=== PATIENT | male | born 1995 | race Two or more races ===

== ENCOUNTER 2020-04-20 01:42 | Emergency (ER) | payer SELFPAY ==
--- NOTE | 2020-04-20 02:07 | EDM.PDOC ---
ED HPI GENERAL MEDICAL PROBLEM - General Chief Complaint: Abdominal Pain Stated Complaint: SPOKE TO NURSE ABOUT COMPLICATIONS Time Seen by Provider: 04/20/20 01:44 Source of Information: Reports: Patient History Limitations: Reports: No Limitations - History of Present Illness INITIAL COMMENTS - FREE TEXT/NARRATIVE: This patient is a 25 year-old male with a past medical history of hypertension and chronic opioid dependence (oxycodone) presenting with constipation. He states that he has been unable to have a bowel movement for at least 5 days. He has not taken any gkio-fru-fkqpfdi constipation therapies to try to treat himself. He denies any fever, abdominal distention, abdominal pain, rectal bleeding, hematemesis, or personal or family history of colon cancer, or weight loss. Denies any change in stool color. No other complaints. - Related Data Allergies Allergy/AdvReac Type Severity Reaction Status Date / Time No Known Allergies Allergy Verified 04/20/20 01:55 Home Meds: Home Meds Sodium Phosphate,Wise-Dibasic [Fleet Enema] 118 ml RC DAILY 1 Days #1 enema 03/06 [Rx] polyethylene glycoL 3350 [MiraLAX] 17 gm PO DAILY 7 Days #1 bottle 04/20/20 [Rx] Past Medical History Cardiovascular History: Reports: Hypertension Other Cardiovascular History: unmedicated HTN Psychiatric History: Reports: Addiction Other Psychiatric History: reports that he thinks he is addicted to opiates Social & Family History - Tobacco Use Smoking Status *Q: Current Every Day Smoker Years of Tobacco use: 7 Packs/Tins Daily: 1 - Recreational Drug Use Recreational Drug Use: Yes Drug Use in Last 12 Months: Yes Recreational Drug Type: Reports: Oxycodone, Other (see below) (Oxycodone dependence) Other Recreational Drug Type: Opiate pills; unsure of what pills he takes ED ROS GENERAL - Review of Systems Review Of Systems: See Below Constitutional: Denies: Fever, Chills Respiratory: Denies: Shortness of Breath Cardiovascular: Denies: Chest Pain Endocrine: Reports: No Symptoms GI/Abdominal: Reports: Constipation. Denies: Abdominal Pain, Anorexia, Black Stool, Bloody Stool, Diarrhea, Hematemesis, Hematochezia, Melena, Nausea, Stool Incontinence, Vomiting : Reports: No Symptoms Musculoskeletal: Reports: No Symptoms Skin: Reports: No Symptoms Neurological: Reports: No Symptoms Psychiatric: Reports: No Symptoms Hematologic/Lymphatic: Reports: No Symptoms Immunologic: Reports: No Symptoms ED EXAM, GI/ABD - Physical Exam Exam: See Below Text/Narrative:: Vital signs reviewed. Nursing notes reviewed. Constitutional: Awake, alert, non-distressed. Head: Normocephalic, atraumatic. Eyes: conjunctiva normal, no discharge, no scleral icterus. Cardiovascular: 2+ radial pulse, capillary refill less than 2 seconds. Pulmonary: normal work of breathing, no accessory muscle use. Abdomen/GI: Soft, nontender, nondistended, no guarding or rigidity, no masses. Digital rectal examination chaperoned by registered nurse: No masses, external anal examination normal, soft brown stool noted, no gross blood. Musculoskeletal: No deformities. Integumentary: Appropriate color for ethnicity, warm, dry, no pallor or jaundice , no rash. Neurologic: Alert, answering questions appropriately, normal speech, no facial droop, moving all extremities well. Psychiatric: Appropriate mood and affect, normal thought process. Course - Vital Signs Text/Narrative:: Patient [hemodynamically stable, afebrile], well-appearing, looks nontoxic. Differential diagnosis includes but is not limited to: Acute constipation, chronic constipation, opioid induced constipation, hypothyroidism, electrolyte disturbance, bowel obstruction, malignancy Abdominal examination is unremarkable. MITA was also unremarkable, no evidence of anal fissure, hemorrhoid, or rectal mass. Low suspicion for obstruction given lack of abdominal pain, distention, or vomiting. Reports normal oral intake so electrolyte disturbances unlikely, vital signs are not consistent with hypothyroidism. Given that he has not attempted any self treatment, we will start with instructions to increase fluid intake along with increased fiber supplementation , a trial of MiraLAX, and a Fleet enema. We will have him follow-up with the family medicine clinic in the next week or so if he is not doing better. Plan: Patient is stable to discharge home with outpatient primary care follow- up. Strict emergency department return precautions were provided, patient indicated understanding. All questions were answered prior to departure. Discharged in good condition. Last Recorded V/S: Last Vital Signs Temp 35.8 C L 04/20/20 01:52 Pulse 100 04/20/20 01:52 Resp 20 04/20/20 01:52 BP 157/94 H 04/20/20 01:52 Pulse Ox 95 04/20/20 01:52 - Orders/Labs/Meds Orders: Patient [hemodynamically stable, afebrile], well-appearing, looks nontoxic. Differential diagnosis includes but is not limited to: Acute constipation, chronic constipation, malignancy, hypothyroidism, electrolyte disturbance, dehydration, opioid related constipation, etc. Patient is well-appearing. No abdominal tenderness, pain, or distention to suggest an obstruction, no history of vomiting, severe pain, or fever. External rectal examination was unremarkable, no evidence of hemorrhoids or fissures. MITA revealed no evidence of an obstructive mass. Soft brown stool noted on digital exam. Given the patient has not attempted any self treatment, we will recommend a trial of MiraLAX along a Fleet enema, increasing fiber intake and oral rehydration. We will have him follow-up with the family medicine clinic in the next few days if this is not successful. Plan: Patient is stable to discharge home with outpatient primary care follow- up. Strict emergency department return precautions were provided, patient indicated understanding. All questions were answered prior to departure. Discharged in good condition. Departure - Departure Time of Disposition: 02:07 Disposition: Home, Self-Care 01 Condition: Good Clinical Impression: Acute constipation Opioid dependence Qualifiers: Substance use status: uncomplicated Qualified Code(s): F11.20 - Opioid dependence, uncomplicated - Discharge Information *PRESCRIPTION DRUG MONITORING PROGRAM REVIEWED*: Not Applicable *COPY OF PRESCRIPTION DRUG MONITORING REPORT IN PATIENT RUSLAN: Not Applicable Instructions: Constipation, Adult Referrals: [facility] - Family Practice [Provider Group] - 1 Week (For follow-up of your symptoms. ) Additional Instructions: Thank you for choosing the [facility] emergency department in [place] for your medical needs today. It was a pleasure caring for you. You were seen in the emergency department for constipation. The most basic step of treating constipation is increasing the amount of oral fluid intake, I recommend making sure that you are drinking plenty of water, you should be urinating about every 1.5-2 hours. I also recommend you increase the amount of fiber in your diet. Metamucil or any generic fiber supplement is a good idea, you need to be getting at least 10 g of fiber every day. The next up would be a laxative called MiraLAX. You can put 17 g of MiraLAX in an a bottle of Gatorade and drink it throughout the day. Do this once daily for at least a week. It may take 2 or 3 days for the MiraLAX to start working. I would also recommend an [id number] Fleet enema. Use this as directed on the package. You can repeat it again 3 or 4 days later after you do it for the first time. Let us have you follow-up with the family medicine clinic in about 1 to 2 weeks if you are still having problems with your constipation. Please return the emergency department immediately if your symptoms worsen or if you feel worse. The following information is given to patients seen in the emergency department who are being discharged. This information is to outline your options for follow -up care. We provide all patients seen in our emergency department with a follow -up referral. The need for follow-up, as well as the timing and circumstances, are variable depending upon the specifics of your emergency department visit. If you don't have a primary care physician on staff, we will provide you with a referral. We always advise you to contact your personal physician following an emergency department visit to inform them of the circumstance of the visit and for follow-up with them and/or the need for any referrals to a consulting specialist. The emergency department will also refer you to a specialist when appropriate. This referral assures that you have the opportunity for follow-up care with a specialist. All of these measure are taken in an effort to provide you with optimal care, which includes your follow-up. Under all circumstances we always encourage you to contact your private physician who remains a resource for coordinating your care. When calling for follow-up care, please make the office aware that this follow-up is from your recent emergency room visit. If for any reason you are refused follow-up, please contact the [facility] Emergency Department at and asked to speak to the emergency department charge nurse. If you do not have a primary care physician that is caring for you, you can contact these clinics below to set up an appointment to establish care: Chantelle Menendez [facility] [address] [place] [id number] [facility] [address] [place] [id number] Sepsis Event Note - Evaluation Sepsis Screening Result: No Definite Risk - Focused Exam Vital Signs: Vital Signs Temp Pulse Resp BP Pulse Ox 04/20/20 01:52 35.8 C L 100 20 157/94 H 95 Date Exam was Performed: 04/20/20 Time Exam was Performed: 02:01
== END 2020-04-20 02:28 | disposition home or self-care (01) ==
LOC: MW.ED 01:42
DX: K59.00 Constipation, unspecified (principal); F11.20 Opioid dependence, uncomplicated; I10 Essential (primary) hypertension; F17.210 Nicotine dependence, cigarettes, uncomplicated; Z79.899 Other long term (current) drug therapy
CPT/HCPCS: 99282; 99283